=== PATIENT | female | born 1995 | race Caucasian/White ===

== ENCOUNTER 2016-05-03 17:59 | Outpatient (CLI) | payer OTHER ==
[~2016-05-03] VITALS: Ht 157.5 cm; Wt 69.9 kg
[2016-05-03] MEDS ORDERED: ASPI325T4 PO (18:32)
[2016-05-03] MEDS ORDERED: PRENAT PO (18:32)
[2016-05-03] MEDS ORDERED: FERR325C PO (18:32)
[2016-05-03] MEDS ORDERED: CITRACAL PO (18:32)
[2016-05-03 18:33] VITALS: Ht 157.5 cm; Wt 69.9 kg
[2016-05-03 18:34] VITALS: BP 111/61; PULSE 80; RESP 18
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
[2016-05-03] MEDS ORDERED: ASPI-664 PO (21:40)
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
--- NOTE | 2016-05-03 22:58 | TRIAGE ---
OB Triage Datetime Report Generated by CPN: 05/03/2016 22:58 Datetime: 05/03/2016 19:43 Assessment Type: Triage Level of Consciousness: Fully Conscious DTR's/Clonus: DTRs 2+; No Clonus Headache: Denies Blurred Vision: No Respiratory Effort: Unlabored; Regular Rhythm; Equal Expansion Breath Sounds, Left: Clear and Equal Breath Sounds, Right: Clear and Equal Nausea/Vomiting: Denies RUQ Epigastric Pain: Denies Lower Extremities Edema: None Degree: None Upper Extremities Edema: None Degree: None Facial Edema: None History of Falling: (0) No Secondary Diagnosis: (0) No Ambulatory Aid: (0) Bedrest/Nurse Assist IV Therapy: (0) No Gait: (0) Normal/Bedrest/Immobile Mental Status: (0) Oriented to Own Ability Fall Score: 0 Fall Risk Score Definition: No Risk: No action required
== END 2016-05-03 21:55 | disposition home or self-care (01) ==
LOC: OBT 17:59 → L-D 17:59 → OBT 21:55
PROVIDERS: ATTEND Specialist
DX: O60.02 Preterm labor without delivery, second trimester (principal); O22.42 Hemorrhoids in pregnancy, second trimester; Z3A.23 23 weeks gestation of pregnancy
CPT/HCPCS: 76815; 85460; 86900; 86901; G0463

== ENCOUNTER 2017-01-03 02:43 | Emergency (ER) | END 2017-01-03 04:45 | disposition home or self-care (01) | DX: N39.0 Urinary tract infection, site not specified (principal); Z79.82 Long term (current) use of aspirin | CPT/HCPCS: 71010; 81003; 93005; 96372; 99284; J1885 ==